=== PATIENT | male | born 1990 | race Caucasian/White ===

== ENCOUNTER 2017-02-15 11:37 | Emergency (ER) | payer OTHER ==
[2017-02-15 11:44] VITALS: BP 135/74; PULSE 108; TEMP 98.3; BMI 28.1
--- NOTE | 2017-02-15 12:24 | PDOC ---
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 Patient states cleaned wound and were painful but did not want to miss the days work. States first day off was today and came in for evaluation. States is still painful although is able to flex and extend fingers and feels has good strength. Tetanus 3 years ago 02/15/17 12:38 02/15/17 12:58 Occurred: reports: just prior to arrival Severity: reports: mild Pain Location: reports: upper extremity Loss of Consciousness: no loss of consciousness Past History - Travel Traveled outside of the country in the last 30 days: No Close contact w/someone who was outside of country & ill: No - Past Medical History Allergies/Adverse Reactions: Allergies Allergy/AdvReac Type Severity Reaction Status Date / Time peanut Allergy Rash Verified 02/15/17 11:44 Home Medications: Ambulatory Orders Albuterol Sulfate Inhaler - [Ventolin HFA Inhaler -] 1 - 2 inh PO Q4H #1 inhaler 06/30/15 Guaifenesin [Robitussin] 10 ml PO Q4H #1 bottle 06/30/15 Asthma: Yes - Surgical History Appendectomy: Yes - Immunization History Immunization Up to Date: Yes - Psycho/Social/Smoking Cessation Hx Anxiety: No Suicidal Ideation: No Smoking History: Never smoked Hx Alcohol Use: Yes (SOCIAL) Drug/Substance Use Hx: No Substance Use Type: None Trauma Specific PMHX - Complaint Specific PMHX Back Injury: No Neck Injury: No Review of Systems - Review of Systems Able to Perform ROS?: Yes Is the patient limited Cuban proficient: Yes Constitutional: Yes: Symptoms Reported Neurological: Yes: Symptoms reported, See HPI All Other Systems: Reviewed and Negative *Physical Exam - Vital Signs Last Vital Signs Temp Pulse Resp BP Pulse Ox 98.3 F 108 H 20 135/74 99 02/15/17 11:41 02/15/17 11:41 02/15/17 11:41 02/15/17 11:41 02/15/17 11:41 - Physical Exam General Appearance: Yes: Nourished, Appropriately Dressed Neck: positive: Supple Respiratory/Chest: positive: Lungs Clear Gastrointestinal/Abdominal: positive: Soft Extremity: positive: Normal Capillary Refill, Normal Inspection, Tender (healed incision at PIP dorsal aspect of right hand and scabbed lesion noted at PIP of 4th digit. ), Other ( full flexion and extension of both digits against resistance, neurovascular intact distal to injuries) Integumentary: positive: Normal Color Neurologic: positive: application architect manager II-XII NML intact, Fully Oriented, Alert, Normal Mood/ Affect, Normal Response, Motor Strength 03/14 ED Treatment Course - RADIOLOGY Radiology Studies Ordered: Category Date Time Status HAND- RIGHT [RAD] Stat Radiology 02/15/17 12:21 Ordered Progress Note - Progress Note Progress Note: Lacerations 2 to right hand, well-healed. X-ray negative for any bone involvement. Will continue having patient conservative measures as unable to perform any other wound repair. Refuses splints as feels is not necessary *DC/Admit/Observation/Transfer Diagnosis at time of Disposition: Finger laceration Qualifiers: Encounter type: initial encounter Qualified Code(s): S61.219A - Laceration without foreign body of unspecified finger without damage to nail, initial encounter - Discharge Dispostion Disposition: HOME Condition at time of disposition: Stable Admit: No - Referrals Referrals: Mello Arita MD [Staff Physician] - - Patient Instructions Additional Instructions: Rest, elevate, avoid strenuous activity or heavy lifting until sutures are removed gently and wash area with soap and water.daily Reapply bacitracin ointment and dressing daily for the next 5 days May use Tylenol or Motrin for pain relief - Post Discharge Activity Work/School Note: Back to Work
== END 2017-02-15 13:10 | disposition home or self-care (01) ==
LOC: JERFT 11:37
DX: S61.210A Laceration without foreign body of right index finger without damage to nail, initial encounter (principal); S61.214A Laceration without foreign body of right ring finger without damage to nail, initial encounter; W26.8XXA Contact with other sharp object(s), not elsewhere classified, initial encounter; Y93.H3 Activity, building and construction; Y92.63 Factory as the place of occurrence of the external cause; Y99.0 Civilian activity done for income or pay
CPT/HCPCS: 73130-TC-RT; 99281-25

== ENCOUNTER 2021-03-23 08:44 | Emergency (ER) | payer OTHER ==
[2021-03-23 09:05] VITALS: BMI 35.0
[2021-03-23] MEDS ORDERED: CLINDAMYCIN 600MG PREMIX IVPB 600 MG/50 ML BAG IVPB ONE ×2 (10:12→10:45)
[2021-03-23] MEDS ORDERED: SODIUM CHLORIDE 1,000 ML IV STA (10:13)
[2021-03-23 11:16] LABS: BASO % 0.5 % (0-2.0); EOS % 0.7 % (0-4.5); HEMATOCRIT 42.3 % (35.4-49); HEMOGLOBIN 13.9 GM/dL (11.7-16.9); LYMPH % 13.4 % (8-40); MEAN PLT VOLUME 7.5 fl (7.5-11.1); MONO % 8.7 % (3.8-10.2); NEUT % 76.7 % (42.8-82.8); PLATELET COUNT 348 K/MM3 (134-434); RBC 4.98 M/mm3 (4.00-5.60); RDW 13.6 % (11.9-15.9); WHITE BLOOD COUNT 16.5 K/mm3 (4.0-10.0)
[2021-03-23 11:48] LABS: CALCIUM 8.8 mg/dL (8.5-10.1)
[2021-03-23 11:49] LABS: ALBUMIN 3.6 g/dl (3.4-5.0); BLOOD UREA NITROGEN 13.3 mg/dL (7-18)
[2021-03-23 11:54] LABS: BILIRUBIN,TOTAL 0.4 mg/dL (0.2-1); TOT PROT 7.4 g/dl (6.4-8.2)
[2021-03-23 13:22] VITALS: BP 125/72; PULSE 87; TEMP 98
== END 2021-03-23 12:45 | disposition home or self-care (01) ==
LOC: JER 08:44
PROC: 0H9AXZZ Drainage of Inguinal Skin, External Approach (ICD-10-PCS; principal; 2021-03-23)
PROC: 3E03329 Introduction of Other Anti-infective into Peripheral Vein, Percutaneous Approach (ICD-10-PCS; 2021-03-23)
PROC: 3E033NZ Introduction of Analgesics, Hypnotics, Sedatives into Peripheral Vein, Percutaneous Approach (ICD-10-PCS; 2021-03-23)
PROC: 3E0337Z Introduction of Electrolytic and Water Balance Substance into Peripheral Vein, Percutaneous Approach (ICD-10-PCS; 2021-03-23)
DX: L02.214 Cutaneous abscess of groin (principal); L03.818 Cellulitis of other sites
CPT/HCPCS: 36415; 80053; 85025; 99284-25

== ENCOUNTER 2021-03-25 11:11 | Emergency (ER) | payer OTHER ==
[2021-03-25 11:16] VITALS: BP 107/64; TEMP 97; BMI 35.0
[2021-03-25 12:16] VITALS: PULSE 88
== END 2021-03-25 12:22 | disposition home or self-care (01) ==
LOC: JERFT 11:11
DX: Z48.00 Encounter for change or removal of nonsurgical wound dressing (principal)
CPT/HCPCS: 99283-25

== ENCOUNTER 2021-03-27 12:32 | Emergency (ER) | payer OTHER ==
[2021-03-27 12:38] VITALS: BP 118/74; PULSE 90; TEMP 98.2; BMI 35.0
== END 2021-03-27 13:10 | disposition home or self-care (01) ==
LOC: JERFT 12:32
DX: Z48.00 Encounter for change or removal of nonsurgical wound dressing (principal)
CPT/HCPCS: 99281-25

== ENCOUNTER 2021-06-25 17:24 | Emergency (ER) | payer OTHER ==
[2021-06-25 17:38] VITALS: BP 126/77; PULSE 103; TEMP 98.9; BMI 35.4
== END 2021-06-25 18:43 | disposition home or self-care (01) ==
LOC: JERFT 17:24
DX: H61.21 Impacted cerumen, right ear (principal)
CPT/HCPCS: 99282-25

== ENCOUNTER 2021-06-29 08:29 | Emergency (ER) | payer OTHER ==
[2021-06-29 08:34] VITALS: BP 118/78; PULSE 66; TEMP 98.2; BMI 36.6
== END 2021-06-29 09:16 | disposition home or self-care (01) ==
LOC: JERFT 08:29
DX: H61.21 Impacted cerumen, right ear (principal)
CPT/HCPCS: 99282-25

== ENCOUNTER 2022-06-16 11:55 | Emergency (ER) | payer OTHER ==
[2022-06-16 12:00] VITALS: TEMP 98; BMI 28.2
[2022-06-16 13:50] LABS: BASO % 0.8 % (0-2.0); HEMOGLOBIN 13.7 GM/dL (11.7-16.9); LYMPH % 23.9 % (8-40); MCH 28.4 pg (25.7-33.7); MCHC 33.4 g/dl (32.0-35.9); MEAN CELL VOLUME 85.1 fl (80-96); MONO % 10.2 % (3.8-10.2); NEUT % 64.1 % (42.8-82.8); PLATELET COUNT 321 10^3/uL (134-434); RBC 4.82 M/mm3 (4.00-5.60); RDW 14.6 % (11.9-15.9); WHITE BLOOD COUNT 9.5 K/mm3 (4.0-10.0)
[2022-06-16 14:13] LABS: ALBUMIN 3.8 g/dl (3.4-5.0); BLOOD UREA NITROGEN 19.3 mg/dL (7-18)
[2022-06-16] MEDS ORDERED: LORazepam 2 MG TABLET PO ONE (14:15)
[2022-06-16 14:18] LABS: BILIRUBIN,TOTAL 0.4 mg/dL (0.2-1); TOT PROT 6.9 g/dl (6.4-8.2)
[2022-06-16] MEDS ORDERED: LORazepam 1 MG TABLET ONE (14:30)
[2022-06-16 15:40] VITALS: BP 125/77; PULSE 86; RESP 20
== END 2022-06-16 15:41 | disposition home or self-care (01) ==
LOC: JER 11:55
DX: F41.9 Anxiety disorder, unspecified (principal)
CPT/HCPCS: 36415; 71046-TC-FY; 80053; 84484; 85025; 93005; 93010; 99285-25

== ENCOUNTER 2023-02-11 19:07 | Inpatient (IN) | payer OTHER ==
[2023-02-11] MEDS ORDERED: SODIUM CHLORIDE 1,000 ML IV STA (22:01)
[2023-02-11] MEDS ORDERED: ACETAMINOPHEN 1000 MG/100 ML BAG IVPB ONE (22:02)
[2023-02-11 22:10] LABS: PH,URINE 5.5 (5.0-8.0); URINE APPEARANCE CLEAR; URINE BILIRUBIN NEGATIVE (NEGATIVE); URINE COLOR YELLOW; URINE GLUCOSE (UA) NEGATIVE (NEGATIVE); URINE KETONE NEGATIVE (NEGATIVE); URINE LEUK ESTERASE NEGATIVE (NEGATIVE); URINE NITRITE NEGATIVE (NEGATIVE); URINE PROTEIN NEGATIVE (NEGATIVE); URINE UROBILINOGEN 0.2 mg/dL (0.2-1.0)
[2023-02-11] MEDS ORDERED: ACETAMINOPHEN INJECTION 100 ML IVPB ONE (22:42)
[2023-02-11 23:00] LABS: BASO % 0.6 % (0-2.0); EOS % 1.5 % (0-4.5); HEMATOCRIT 39.7 % (35.4-49); HEMOGLOBIN 13.2 GM/dL (11.7-16.9); LYMPH % 21.1 % (8-40); MCH 27.6 pg (25.7-33.7); MCHC 33.2 g/dl (32.0-35.9); MEAN CELL VOLUME 82.9 fl (80-96); MONO % 10.1 % (3.8-10.2); NEUT % 66.7 % (42.8-82.8); PLATELET COUNT 347 10^3/uL (134-434); RBC 4.78 M/mm3 (4.00-5.60); RDW 13.8 % (11.9-15.9); WHITE BLOOD COUNT 14.9 K/mm3 (4.0-10.0)
[2023-02-11 23:22] LABS: CALCIUM 8.9 mg/dL (8.5-10.1)
[2023-02-11 23:23] LABS: ALBUMIN 3.7 g/dl (3.4-5.0); BLOOD UREA NITROGEN 12.6 mg/dL (7-18)
[2023-02-11 23:27] LABS: TOT PROT 7.7 g/dl (6.4-8.2)
[2023-02-11 23:28] LABS: BILIRUBIN,TOTAL 0.4 mg/dL (0.2-1)
[2023-02-12] MEDS: SULFAMETHOXAZOLE/TRIMETHOPRIM 400MG/80MG S.S. TABLET PO ONE ×2 (00:06→00:11)
[2023-02-12] MEDS: CIPROFLOXACIN 500 MG TABLET (RESTRICTED TO ID) PO ONE ×2 (00:06→01:51)
[2023-02-12] MEDS ORDERED: SULFAMETHOXAZOLE/TRIMETHOPRIM 800MG/160MG D.S. TABLET PO ONE (00:08)
[2023-02-12] MEDS ORDERED: SULFAMETHOXAZOLE/TRIMETHOPRIM 800MG/160MG D.S. TABLET ONE (00:08)
[2023-02-12] MEDS ORDERED: CIPROFLOXACIN 400 MG/D5W 400 MG/200 ML IVPB IVPB ONE (01:35)
[2023-02-12 05:20] LABS: HIV INTERPRETATION NEGATIVE (NEGATIVE)
[2023-02-12 08:34] LABS: CALCIUM 9.2 mg/dL (8.5-10.1)
[2023-02-12 08:35] LABS: ALBUMIN 3.5 g/dl (3.4-5.0); BLOOD UREA NITROGEN 11.5 mg/dL (7-18)
[2023-02-12 08:40] LABS: BILIRUBIN,TOTAL 0.3 mg/dL (0.2-1); TOT PROT 7.2 g/dl (6.4-8.2)
[2023-02-12 08:44] LABS: HEMATOCRIT 38.1 % (35.4-49); MCH 28.2 pg (25.7-33.7); MCHC 34.1 g/dl (32.0-35.9); MEAN CELL VOLUME 82.6 fl (80-96); MEAN PLT VOLUME 7.3 fl (7.5-11.1); PLATELET COUNT 333 10^3/uL (134-434); RBC 4.61 M/mm3 (4.00-5.60); RDW 13.4 % (11.9-15.9); WHITE BLOOD COUNT 12.9 K/mm3 (4.0-10.0)
[2023-02-12 09:58] LABS: PH,URINE 7.5 (5.0-8.0); URINE APPEARANCE CLEAR; URINE BILIRUBIN NEGATIVE (NEGATIVE); URINE COLOR YELLOW; URINE GLUCOSE (UA) NEGATIVE (NEGATIVE); URINE KETONE NEGATIVE (NEGATIVE); URINE LEUK ESTERASE NEGATIVE (NEGATIVE); URINE NITRITE NEGATIVE (NEGATIVE); URINE PROTEIN NEGATIVE (NEGATIVE); URINE UROBILINOGEN 0.2 mg/dL (0.2-1.0)
[2023-02-12] MEDS ORDERED: ENOXAPARIN NA (PORCINE) 40 MG/0.4 ML DISP.SYRIN SQ ONE (10:58)
[2023-02-12] MEDS ORDERED: ACETAMINOPHEN 500 MG TABLET (FP) ONE (11:00)
[2023-02-12] MEDS: ENOXAPARIN NA (PORCINE) 40 MG/0.4 ML DISP.SYRIN SQ SCH (11:04)
[2023-02-12] MEDS: ACETAMINOPHEN 500 MG TABLET (FP) PO PRN (11:04)
[2023-02-12] MEDS ORDERED: PIPERACILLIN/TAZOB 3.375 GM 3.375 GM/50 ML BAG IVPB ONE (16:04)
[2023-02-12] MEDS: PIPERACILLIN/TAZOB 3.375 GM 3.375 GM in DEXTROSE 5%-WATER - 50 ML IVPB SCH ×2 (16:27→23:59)
[2023-02-12] MEDS: OLANZapine 10 MG TABLET PO SCH ×2 (21:57→23:10)
[2023-02-12] MEDS: QUEtiapine FUMARATE 100 MG TABLET (FP) PO SCH ×2 (21:57→23:10)
[2023-02-12] MEDS ORDERED: QUEtiapine FUMARATE 100 MG TABLET (FP) ONE (23:11)
[2023-02-13] MEDS ORDERED: PIPERACILLIN/TAZOB 3.375 GM 3.375 GM/50 ML BAG IVPB ONE ×2 (00:03→09:00)
[2023-02-13 07:32] LABS: BASO % 0.4 % (0-2.0); EOS % 1.5 % (0-4.5); HEMATOCRIT 38.4 % (35.4-49); HEMOGLOBIN 13.3 GM/dL (11.7-16.9); LYMPH % 29.5 % (8-40); MCH 28.6 pg (25.7-33.7); MCHC 34.7 g/dl (32.0-35.9); MEAN CELL VOLUME 82.3 fl (80-96); MEAN PLT VOLUME 7.1 fl (7.5-11.1); MONO % 12.6 % (3.8-10.2); PLATELET COUNT 334 10^3/uL (134-434); RBC 4.67 M/mm3 (4.00-5.60); RDW 13.5 % (11.9-15.9); WHITE BLOOD COUNT 9.2 K/mm3 (4.0-10.0)
[2023-02-13 07:43] LABS: ALBUMIN 3.5 g/dl (3.4-5.0); BLOOD UREA NITROGEN 12.2 mg/dL (7-18); CALCIUM 9.1 mg/dL (8.5-10.1); MAGNESIUM 2.4 mg/dL (1.8-2.4)
[2023-02-13 07:48] LABS: BILIRUBIN,TOTAL 0.6 mg/dL (0.2-1); TOT PROT 7.4 g/dl (6.4-8.2)
[2023-02-13] MEDS: PIPERACILLIN/TAZOB 3.375 GM 3.375 GM in DEXTROSE 5%-WATER - 50 ML IVPB SCH ×3 (09:32→22:51)
[2023-02-13] MEDS: ENOXAPARIN NA (PORCINE) 40 MG/0.4 ML DISP.SYRIN SQ SCH (09:33)
[2023-02-13] MEDS ORDERED: ENOXAPARIN NA (PORCINE) 40 MG/0.4 ML DISP.SYRIN SQ ONE (09:33)
[2023-02-13] MEDS ORDERED: DIVALPROEX SODIUM 500 MG TABLET E.C. ONE (09:33)
[2023-02-13] MEDS: DIVALPROEX NA *ER* EXTEND REL 500 MG TABLET.SA (FP) PO SCH (09:33)
[2023-02-13] MEDS ORDERED: ACETAMINOPHEN 325 MG TABLET (FP) ONE (09:34)
[2023-02-13] MEDS: ACETAMINOPHEN 500 MG TABLET (FP) PO PRN (09:34)
[2023-02-13 20:00] VITALS: RESP 18; BMI 31.6
[2023-02-13] MEDS ORDERED: QUEtiapine FUMARATE 50 MG TABLET ONE (21:02)
[2023-02-13] MEDS: OLANZapine 10 MG TABLET PO SCH (21:04)
[2023-02-13] MEDS: QUEtiapine FUMARATE 100 MG TABLET (FP) PO SCH (21:04)
[2023-02-14 06:22] VITALS: BP 107/59; PULSE 70; TEMP 98.3
[2023-02-14] MEDS: PIPERACILLIN/TAZOB 3.375 GM 3.375 GM in DEXTROSE 5%-WATER - 50 ML IVPB SCH (07:52)
[2023-02-14 09:00] LABS: BASO % 0.6 % (0-2.0); EOS % 1.5 % (0-4.5); HEMATOCRIT 39.5 % (35.4-49); HEMOGLOBIN 13.7 GM/dL (11.7-16.9); LYMPH % 23.3 % (8-40); MCH 28.4 pg (25.7-33.7); MCHC 34.6 g/dl (32.0-35.9); MEAN CELL VOLUME 81.9 fl (80-96); MEAN PLT VOLUME 6.9 fl (7.5-11.1); MONO % 11.8 % (3.8-10.2); NEUT % 62.8 % (42.8-82.8); PLATELET COUNT 360 10^3/uL (134-434); RBC 4.82 M/mm3 (4.00-5.60); RDW 13.5 % (11.9-15.9); WHITE BLOOD COUNT 10.3 K/mm3 (4.0-10.0)
[2023-02-14 09:31] LABS: CALCIUM 9.4 mg/dL (8.5-10.1)
[2023-02-14 09:32] LABS: ALBUMIN 3.6 g/dl (3.4-5.0); BLOOD UREA NITROGEN 14.6 mg/dL (7-18); CREATININE 1.2 mg/dL (0.55-1.3); MAGNESIUM 2.4 mg/dL (1.8-2.4)
[2023-02-14 09:33] LABS: BILIRUBIN,TOTAL 0.4 mg/dL (0.2-1); TOT PROT 7.6 g/dl (6.4-8.2)
[2023-02-14] MEDS: DIVALPROEX NA *ER* EXTEND REL 500 MG TABLET.SA (FP) PO SCH (10:02)
[2023-02-14] MEDS: ACETAMINOPHEN 500 MG TABLET (FP) PO PRN (10:02)
[2023-02-14] MEDS: ENOXAPARIN NA (PORCINE) 40 MG/0.4 ML DISP.SYRIN SQ SCH (10:02)
== END 2023-02-14 14:14 | disposition home or self-care (01) | DRG 501 ==
LOC: JERFT 19:07 → JER 19:07 → JERBED 23:44 → MERGE 23:44 → J7W 02-13 19:33
PROVIDERS: ADMIT Internal Medicine; ATTEND Nurse Practitioner Acute Care
DX: N49.2 Inflammatory disorders of scrotum (principal); F31.9 Bipolar disorder, unspecified; N43.3 Hydrocele, unspecified
CPT/HCPCS: 0241U-QW; 36415; 76870-TC; 76882-TC-RT-FY; 80053; 81003; 83036; 83735; 85025; 85027; 86140; 86780; 87081; 87086; 87389; 87491; 87591; 87661; 99285-25